=== PATIENT | female | born 2000 | race Two or more races ===

== ENCOUNTER 2022-05-24 00:19 | Emergency (ER) | payer OTHER ==
[~2022-05-24] VITALS: Ht 165.1 cm; Wt 67.1 kg
--- NOTE | 2022-05-24 00:35 | NUR ---
ASHLEY Yunior FROM [facility]RI[facility] HOUSE C/O ACTING STRANGE HAS XANAX PRN, DID NOT TAKEN ANY TODAY. PT AWAKE AND RESPONSIVE; NOT ANSWERING QUESTIONS APPROPRIATELY. TOLERATING R/A WELL WITH NO SOB OR RESP DISTRESS. PT CHANGED INTO GOWN. SAFETY MEASURES IN PLACE. 1:1 SITTER AT PT'S BEDSIDE.
[2022-05-24] MEDS ORDERED: OLANZAPINE 10 MG VIAL IM ONE ×6 (00:46→17:07)
--- NOTE | 2022-05-24 01:14 | NUR ---
MANAGER BILINGUAL AT PT'S BEDSIDE. PT REFUSING BLOOD DRAW. WILL COME BACK AND TRY AGAIN LATER
--- NOTE | 2022-05-24 02:03 | NUR ---
SHEET MILL SUPERVISOR AT PT'S BEDSIDE.
[2022-05-24 02:16] LABS: BASOPHILS # (AUTO) 0.1 K/uL (0.0-0.2); BASOPHILS % (AUTO) 0.9 % (0.0-2.0); EOSINOPHILS % (AUTO) 0.7 % (0.0-6.0); HEMATOCRIT 35 % (33-45); HEMOGLOBIN 11.5 g/dL (11.5-14.8); LYMPHOCYTES # (AUTO) 2.7 K/uL (0.8-4.8); LYMPHOCYTES % (AUTO) 19.9 % (20.0-44.0); MEAN CORPUSCULAR HGB CONC 33 g/dl (31.0-36.0); MEAN CORPUSCULAR VOLUME 77 fL (82-100); MONOCYTES # (AUTO) 1.1 K/uL (0.1-1.30); NEUTROPHILS # (AUTO) 9.5 K/uL (1.8-8.9); NEUTROPHILS % (AUTO) 70.5 % (43.0-81.0); PLATELET COUNT (AUTO) 391 K/uL (150-450); RED BLOOD CELL COUNT(AUTO) 4.53 MIL/uL (4.0-5.2); WHITE BLOOD COUNT (AUTO) 13.4 K/uL (4.3-11.0)
[2022-05-24 02:26] LABS: CALCIUM, SERUM 8.9 mg/dL (8.5-10.1); CARBON DIOXIDE 26 mmol/L (21-32); CHLORIDE 102 mmol/L (98-107); CREATININE 0.9 mg/dL (0.6-1.3); GLUCOSE 100 mg/dL (74-106); POTASSIUM 3.4 mmol/L (3.5-5.1); SODIUM SERUM 138 mmol/L (136-145); UREA NITROGEN, BLOOD 14 mg/dL (7-18)
[2022-05-24 02:32] LABS: ALANINE AMINOTRANSFERASE 48 U/L (12-78); ALBUMIN 3.9 g/dL (3.4-5.0); ALCOHOL, BLOOD < 3 mg/dL (0-0); ALKALINE PHOSPHATASE 92 U/L (46-116); ASPARTATE AMINOTRANSFERASE 27 U/L (15-37); BILIRUBIN,DIRECT 0.2 mg/dL (0.0-0.2); BILIRUBIN,TOTAL 0.6 mg/dL (0.2-1.0); TOTAL PROTEIN, SERUM 7.9 g/dL (6.4-8.2)
[2022-05-24 02:54] LABS: ACETAMINOPHEN < 2 ug/ml (10-30)
--- NOTE | 2022-05-24 03:06 | NUR ---
PT SLEEPING. AROUSABLE TO TOUCH. VSS. SAFETY MEASURES IN PLACE.
--- NOTE | 2022-05-24 06:17 | NUR ---
MOTHER DERRELL [phone]
--- NOTE | 2022-05-24 07:18 | NUR ---
PT AMBULATORY TO RESTROOM WITH SUPERVISION. ADLS DONE.
--- NOTE | 2022-05-24 11:59 | NUR ---
SS consult requested for bizarre behavior. Pt. is a 21-year-old female who was admitted to [facility] on 05/24/2022 due to bizarre behavior. Per EMR, was brought in from a friends house acting strange. Upon SS consult, pt. is alert and oriented x2(self and place). Pt. could not state the correct year or the situation. Pt. appears confused and disorganized. Pt. appears to be responding to internal stimuli. Pt. presents with an illogical thought process. Pt. did not provide appropriate eye contact and appeared unkempt. Pt. was unable to complete long term care social worker assessment at this time. behavioral services tech will remain available as needed.
[2022-05-24] MEDS ORDERED: LORAZEPAM INJ 2 MG/ML VIAL ONE (12:34)
--- NOTE | 2022-05-24 12:41 | NUR ---
PATIENT AWAKE CRYING- SCREAMING. SEEN BY DR PATEL ORDERS ATIVAN 2MG IM GIVEN.
[2022-05-24] MEDS ORDERED: LORAZEPAM INJ 2 MG/ML VIAL IM ONE (13:00)
--- NOTE | 2022-05-24 19:56 | NUR ---
COVID ANTIGEN SWAB COLLECTED AND SENT TO LAB PT SLEEPING IN BED. VSS. RESP EVEN AND NONLABORED
--- NOTE | 2022-05-24 20:22 | NUR ---
UPDATED CHANTEL MOTHER ON PT'S CONDITION. [phone] VSS
--- NOTE | 2022-05-24 22:57 | NUR ---
Jairon hernandez in [facility] - 05/24/22 at 2257 by ROVERTO SUKHWINDER BERNSTEIN
--- NOTE | 2022-05-24 22:57 | NUR ---
SUKHWINDER BERNSTEIN, CRISIS CLINICAN TO EVALUATE PT
--- NOTE | 2022-05-24 23:05 | NUR ---
URINE COLLECTED AND SENT TO LAB
[2022-05-25 00:05] LABS: BILIRUBIN,URINE SMALL (NEGATIVE); COLOR,URINE YELLOW (YELLOW); LEUKOCYTE ESTERASE ,URINE NEGATIVE (NEGATIVE); NITRITE, URINE NEGATIVE (NEGATIVE); PH,URINE 5.5 (5.0-8.0); PROTEIN,URINE 30 mg/dl (NEGATIVE); UGLUCOSE NEGATIVE (NEGATIVE); UROBILINOGEN,URINE 0.2 EU/dL (0.2)
--- NOTE | 2022-05-25 01:34 | NUR ---
PSYCH CLINICIAN AT BEDSIDE
--- NOTE | 2022-05-25 03:10 | NUR ---
PT AROUSABLE BUT WAS NOT ABLE TO BE ASSESSED FOR PSYCH EVAL. PT DOES NOT RESPOND TO QUESTIONS. PT WILL BE REEVALUATED IN MORNING. VSS.
[2022-05-25] MEDS ORDERED: OLANZAPINE 10 MG VIAL IM ONE ×4 (03:30→17:42)
[2022-05-25 04:00] LABS: RBC,URINE 51-80 /HPF (0-2)
[2022-05-25 04:01] LABS: BACTERIA,URINE Few /HPF (None Seen); SQUAMOUS EPITHELIAL CELL,UR Moderate /HPF (None Seen)
--- NOTE | 2022-05-25 08:20 | NUR ---
CALLED ART, RN ACLS, REGARDING PT STATUS AND WAS NOTIFIED THAT HE WILL COME TO FURTHER EVALUATE THE PT. NO ETA WAS GIVEN AT THIS TIME
--- NOTE | 2022-05-25 11:32 | NUR ---
cyber intel planner spoke with residential green building designer Doyle ([phone]). Doyle ([phone]) stated he placed pt. on hold and asked senior program planner to initiate transfer. cyber intel planner faxed clinicals to the following facilities: [facility] FAX: [phone] TEL: [phone] [facility] ATTN: Miguel tel:[phone] [facility] fax:[phone] tel:[phone] [facility] TEL: [phone] fax: [phone] [facility] [[address], [place] [address]; ]; cyber intel planner awaiting placement. cyber intel planner will follow-up with the above facilities.
--- NOTE | 2022-05-25 11:58 | NUR ---
[facility] ([phone]) called and Chidi stated that the pt. has been clinically approved. Chidi ([phone]) stated that they will call back when a bed has become available. Chidi ([phone]) stated that the pt. needs a test. account planner notified ER. account planner will fax test when available.
--- NOTE | 2022-05-25 13:34 | NUR ---
information systems planner followed up with following facilities regarding placement for pt. [facility] ([phone]) and spoke with Elder who stated the clinicals were in review. [facility] ([phone]) and spoke with Alee who stated the clinicals are in review. [facility] ([phone]) and spoke with Janis who stated there were no beds available. [facility] ([phone]) and spoke with Chidi who stated the pt. is approved and waiting on a bed. Chidi confirmed recieiving the test via fax. [facility] ([phone]) stated that clinicals were in review.
--- NOTE | 2022-05-25 14:01 | NUR ---
resource management planner faxed clinicals to [facility] ([phone]) for placement.
--- NOTE | 2022-05-25 15:23 | NUR ---
community planner faxed clinicals to [facility] (FAX: [phone]) (PHONE: [phone]) for placement for pt.
--- NOTE | 2022-05-25 16:50 | NUR ---
PT ACCEPTED AT THE [facility] GOING TO [address] [place] [address] [place]ING[place]. NUMBER FOR REPORT [phone]
--- NOTE | 2022-05-25 16:55 | NUR ---
CALLED [facility] AND SET UP S TRANSPORT TO [facility] ETA 190
--- NOTE | 2022-05-25 17:04 | NUR ---
PHAM CALLED BACK FROM [facility]. STATES UNBLE TO TAKE PATIENT BECAUSE OF PPO INSURANCE.
--- NOTE | 2022-05-25 17:25 | NUR ---
CANCELLED [facility] TRANSPORT
--- NOTE | 2022-05-25 18:47 | NUR ---
FACESHEET, CLINICALS FAXED TO [facility].
[2022-05-25] MEDS ORDERED: LORAZEPAM INJ 2 MG/ML VIAL ONE (22:46)
[2022-05-25] MEDS ORDERED: diphenhydrAMINE HCL 50 MG/ML VIAL ONE (22:46)
[2022-05-25] MEDS ORDERED: diphenhydrAMINE HCL 50 MG/ML VIAL IM ONE (23:00)
[2022-05-25] MEDS ORDERED: LORAZEPAM INJ 2 MG/ML VIAL IM ONE (23:00)
--- NOTE | 2022-05-26 06:08 | NUR ---
PT SLEEPING IN BED. RESP EVEN AND NON LABORED. VSS. PT IN NO ACUTE DISTRESS AT THIS TIME. SAFETY MEASURES CONTINUED.
--- NOTE | 2022-05-26 07:12 | NUR ---
assisted pt from gurney to wheel chair to use restroom and void, safe transfer to toilet, will help pt return back to room and bed once finished.
--- NOTE | 2022-05-26 09:30 | NUR ---
DR ARMENTA AT BEDSIDE
--- NOTE | 2022-05-26 09:40 | NUR ---
PT PROVIDED WITH MEAL TRAY
[2022-05-26] MEDS ORDERED: OLANZAPINE 5 MG TABLET ONE (09:51)
[2022-05-26] MEDS ORDERED: OLANZAPINE ZYDIS 5 MG TAB.RAPDIS PO SCH (10:00)
--- NOTE | 2022-05-26 10:47 | NUR ---
COVID ANTIGEN TEST ORDERED. SWABBED AND SENT TO LAB.
[2022-05-26 11:01] VITALS: BP 117/68
--- NOTE | 2022-05-26 11:36 | NUR ---
microchip specialist faxed recent covid test to [facility] ([phone]). Hever at [facility] stated the pt. will be accepted once the test is recieved.
--- NOTE | 2022-05-26 11:58 | NUR ---
[facility] CALLED FOR TRANSPORT ETA 1400 PER PEPE.
--- NOTE | 2022-05-26 11:58 | NUR ---
ACCEPTED AT [facility], GOING TO [facility] .[facility] UNIT NUMBER FOR REPORT [phone]
--- NOTE | 2022-05-26 12:09 | NUR ---
naval surface fire support planner spoke with [facility]. Pt. [facility] in bed 146D under Dr. Saldaña. Nurse to nurse phone report [phone].
--- NOTE | 2022-05-26 13:22 | NUR ---
REPORT GIVEN TO NURSE FOY FROM [facility].
--- NOTE | 2022-05-26 14:02 | NUR ---
[facility] CALLED WILL BE HERE IN 20-30 MINS PER PEPE.
--- NOTE | 2022-05-26 15:15 | NUR ---
REPORT GIVEN TO AMBULANCE STAFF THE PATIENT IS TRANSFERED TO [facility] IN STABLE CONDITION VIA ARRANGED TRANSPO.
== END 2022-05-26 15:17 ==
LOC: ER 00:21
DX: F29 Unspecified psychosis not due to a substance or known physiological condition (principal); F32.A Depression, unspecified; R45.851 Suicidal ideations; Z20.822 Contact with and (suspected) exposure to COVID-19
CPT/HCPCS: 99285; 96372 ×3; 80307 ×2; 85025; 80048; 87086; 80076; 84703; 81001; 36415; 87426 ×2; 80143; 80320; J2060 ×2; J3490 ×5; C9803 ×2; J1200; G0480

== ENCOUNTER 2022-06-21 05:06 | Emergency (ER) | payer OTHER ==
[~2022-06-21] VITALS: Ht 165.1 cm; Wt 69.4 kg
--- NOTE | 2022-06-21 05:25 | NUR ---
BIBFAMILY MEMBER FROM HOME C/O ACTING BIZARRE STARTING TUESDAY, FAMILY WOULD LIKE PSYCH EVAL. +AUDITORY HALLUCINATIONS. PT A/OX2/3; DIRECTABLE. TOLERATING R/A WITH NO RESP DISTRESS. SAFETY MEASURES IN PLACE. 1:1 SITTER AT PT'S BEDSIDE
--- NOTE | 2022-06-21 05:30 | NUR ---
URINE COLLECTED AND SENT TO LAB
--- NOTE | 2022-06-21 05:32 | NUR ---
GLASS CARRIER AT PT'S BEDSIDE
[2022-06-21 05:47] LABS: BASOPHILS # (AUTO) 0.1 K/uL (0.0-0.2); BASOPHILS % (AUTO) 1.1 % (0.0-2.0); EOSINOPHILS % (AUTO) 1.1 % (0.0-6.0); HEMATOCRIT 37 % (33-45); HEMOGLOBIN 11.9 g/dL (11.5-14.8); LYMPHOCYTES # (AUTO) 2.5 K/uL (0.8-4.8); LYMPHOCYTES % (AUTO) 23.7 % (20.0-44.0); MEAN CORPUSCULAR HGB CONC 32 g/dl (31.0-36.0); MEAN CORPUSCULAR VOLUME 78 fL (82-100); MONOCYTES # (AUTO) 0.8 K/uL (0.1-1.30); MONOCYTES % (AUTO) 7.2 % (2.0-12.0); NEUTROPHILS # (AUTO) 7.2 K/uL (1.8-8.9); NEUTROPHILS % (AUTO) 66.9 % (43.0-81.0); PLATELET COUNT (AUTO) 433 K/uL (150-450); RED BLOOD CELL COUNT(AUTO) 4.74 MIL/uL (4.0-5.2); WHITE BLOOD COUNT (AUTO) 10.7 K/uL (4.3-11.0)
[2022-06-21 05:48] LABS: BILIRUBIN,URINE SMALL (NEGATIVE); COLOR,URINE YELLOW (YELLOW); LEUKOCYTE ESTERASE ,URINE NEGATIVE (NEGATIVE); NITRITE, URINE NEGATIVE (NEGATIVE); PH,URINE 5.5 (5.0-8.0); PROTEIN,URINE NEGATIVE (NEGATIVE); UGLUCOSE NEGATIVE (NEGATIVE); UROBILINOGEN,URINE 0.2 EU/dL (0.2)
[2022-06-21 05:56] LABS: CALCIUM, SERUM 9.8 mg/dL (8.5-10.1); CARBON DIOXIDE 26 mmol/L (21-32); CHLORIDE 101 mmol/L (98-107); GLUCOSE 115 mg/dL (74-106); POTASSIUM 3.2 mmol/L (3.5-5.1); SODIUM SERUM 138 mmol/L (136-145); UREA NITROGEN, BLOOD 12 mg/dL (7-18)
[2022-06-21 06:02] LABS: ALANINE AMINOTRANSFERASE 27 U/L (12-78); ALBUMIN 4.3 g/dL (3.4-5.0); ALKALINE PHOSPHATASE 104 U/L (46-116); ASPARTATE AMINOTRANSFERASE 10 U/L (15-37); BILIRUBIN,DIRECT 0.2 mg/dL (0.0-0.2); BILIRUBIN,TOTAL 0.7 mg/dL (0.2-1.0); TOTAL PROTEIN, SERUM 8.4 g/dL (6.4-8.2)
[2022-06-21 06:03] LABS: ACETAMINOPHEN < 2 ug/ml (10-30); ALCOHOL, BLOOD < 3 mg/dL (0-0)
--- NOTE | 2022-06-21 06:05 | NUR ---
LING LegerW paged for psych eval
--- NOTE | 2022-06-21 06:09 | NUR ---
COVID SWAB COLLECTED AND SENT TO LAB
[2022-06-21] MEDS ORDERED: risperiDONE 0.25 MG TABLET PO ONE (06:30)
[2022-06-21] MEDS ORDERED: risperiDONE 1 MG TABLET ONE (06:30)
[2022-06-21] MEDS ORDERED: LORAZEPAM 1 MG TABLET PO ONE (07:30)
[2022-06-21] MEDS ORDERED: LORAZEPAM 1 MG TABLET ONE (07:32)
[2022-06-21] MEDS ORDERED: RISP4TAB70 PO (08:49)
--- NOTE | 2022-06-21 10:25 | NUR ---
JANELL PANDYA CALLED FOR RE-EVAL, FAMILY NOT AWARE OF POC EVEN AFTER THOROUGH EXPLANATION
[2022-06-21 10:40] VITALS: BP 119/65
--- NOTE | 2022-06-21 10:58 | NUR ---
SEEN BY JANELL PANDYA, VERBALIZED UNDERSTANDING OF ACI, AMBULATED TO WR W/ STEADY GAT WITH SUPERVISOR RIDE ASSEMBLY.
--- NOTE | 2022-06-21 11:00 | NUR ---
SS Note: SW met with pt. and her mother, Nikki Cavazos [phone] at bedside. SW reiterrated optical effects layout person, Arsen's discharge instructions and referrals. Mother stated pt. has a therapist and psychiatrist and SW encouraged her to contact them for continuity of care. SW provided the following mental health resources. Mother expressed understanding and was agreeable to plan. OLIVE RAHUL [facility] [address] [place] [address] Mental Health Services [facility] [address] [place] [address] Services: Outpatient therapy for children, teens, young adults, adults, older adults, and families; Psychiatric services, medication support [place] Crisis and Hotline Telephone Numbers: 24-Hour service unless stated [place] Mental Health/Crisis Line........[phone] Suicide Prevention Center (24 Hours).......[phone] Suicide Prevention Crisis Center.......[phone] (24 Hours) Alcoholics Anonymous (24 Hours)..........[phone] National Crisis Hotlines: Alcohol and Drug Helpline - Provides referrals to local facilities where adolescents and adults can seek help. Brief intervention. [facility] Helpline National [place] for [facility] Mentally Ill 7-116-254-KATHARINA National Youth Crisis Hotline [facility] Provides free information on specific disorders, referral directory to mental health providers, national directory of local mental health associations (M-F, 9-5 EST) National [place] of Mental Health Information Line: Provide sinformation and literature on mental illness by disorder-for professionals and general public. Counseling--Outpatient [facility] [address] [facility] [place] [address] (Specializes in in-depth psychotherapy for emotional distress: anxiety, depression, interpersonal conflicts, life transitions, childhood abuse) [address] [address] (Assist with solving problem marital difficulties, separation & divorce, aging parents, & grief, chronic & terminal illness) [facility] [address] [place] [address] (Deal with loss & grief, anxiety, marital difficulties) Homebound/Mental Health Services [address] [facility], [address] [place] [address] (Provide in-home mental services to people who are incapable of leaving their homes) [facility] [address] [place] [address] [facility] [address] [place] [address] PSYCHIATRIC OUTPATIENT SERVICES [facility] Partial Hospitalization and Intensive Outpatient Program (Managed Care and [place] Only) [address] [facility]. [facility] [address]; [phone] [facility] Partial Hospitalization and Outpatient Program [address] [facility]. [address] [place] [address]; [phone] [facility] Mental Health Center [address] [facility] [place], [place] [phone] [facility] Partial Hospitalization and Outpatient [address] [place], [place] ; [phone] ;[phone]
== END 2022-06-21 11:00 | disposition home or self-care (01) ==
LOC: ER 05:06
DX: F29 Unspecified psychosis not due to a substance or known physiological condition (principal); Z20.822 Contact with and (suspected) exposure to COVID-19
CPT/HCPCS: 99285; 85025; 80048; 80076; 81003; 36415; 87426; 80143; 80320; 80307; C9803; G0480